=== PATIENT | female | born 1955 | race Caucasian/White ===

== ENCOUNTER → 2018-07-09 | Outpatient (CLI) | payer BC ==
--- NOTE | 2018-07-09 15:00 | KCIC ---
EXAM: Bilateral hands, 3 views. HISTORY: Pain. COMPARISON: None. FINDINGS: 3 views of both hands are obtained. There has been amputation at the base of the left third distal phalanx. There is mild left first carpometacarpal joint space narrowing with subchondral sclerosis and marginal osteophytosis. There is no acute fracture, dislocation or subluxation. IMPRESSION: 1. Mild left first carpometacarpal osteoarthritis. 2. Prior amputation at the base of the left third distal phalanx. Electronically signed by: Sruthi Sullivan MD (07/09/2018 2:56 PM) [place] [id number]
== END | disposition home or self-care (01) ==
LOC: KCIC 11:31
PROVIDERS: ATTEND Internal Medicine Rheumatology
DX: M18.12 Unilateral primary osteoarthritis of first carpometacarpal joint, left hand (principal)
CPT/HCPCS: 73130